=== PATIENT | female | born 1980 | race Caucasian/White ===

== ENCOUNTER 2017-06-10 06:11 | Day surgery (SDC) | payer BC, SELFPAY ==
[2017-06-10] VITALS (7 sets, daily range): BP systolic 110–135; BP diastolic 72–92; PULSE 89–114; RESP 16; TEMP 36.5–36.7; O2SAT 96–100; BMI 32.9
--- NOTE | 2017-06-10 07:30 | POC_PTH ---
PATIENT: NATALIE RODRIGUEZ LOC: [facility] [place] U#:[id number] AGE/SX: 37/F ROOM: RE06/10/[address]: Dr. Brooke Pacheco MD : 1980 BED: DIS: 06/10/2017 SPEC #: [id number] RECD: 06/10/17 08:35 STATUS: LELA COFFEYSalvador #: [id number] ANA: 06/10/17 07:[address]: Brooke Pacheco DEPT: SURGICAL PATHOLOGY RECD BY: Tessie Weiner ENTERED: 06/10/17 09:03 SP TYPE: PROD CONC OTHR DR: Dr. Benji Sen MD Tissues: Product of conception, NOS Procedures: Surgery Specimen Level IV HEADER OPERATION: Dilation and curettage, suction PRE-OP DIAGNOSIS: Missed at 10 weeks TISSUE SUBMITTED: Products of conception MICROSCOPIC DIAGNOSIS Products of conception: Decidua and immature chorionic villi (products of conception). SJ:melba 06/11/17 MICROSCOPIC DESCRIPTION Slides are reviewed. GROSS DESCRIPTION Received in fixative is one container labeled with the patient's name and designated products of conception. The specimen consists of multiple fragments of pink-red soft tissue that in aggregate measure 8 x 8 x 3 cm. No tissue is identified. Mission Systems Engineer tissue is submitted in two cassettes. / TRINY:melba 06/10/17 TC:5 CPT: 83853
[2017-06-10] MEDS: Doxycycline 100 MG CAPSULE PO (07:47)
--- NOTE | 2017-06-10 08:18 | PCM.DC.D&C ---
Discharge Diet: No Restrictions Discharge Activity: Return to Normal Activity, May Shower, May Take a Tub Bath - in 2 weeks. Return to work on:: 06/15/17 May shower in (days): 1 May resume sexual activity in: No Restrictions Call your doctor if your incision/area has: Sudden Increased Bleeding, Increased Pain/ Swelling Call your doctor if you observe: Fever of 101 or Higher Allergies/Adverse Reactions: Allergies No Known Allergies Allergy (Verified 06/09/17 11:27) Medications to take at Discharge Doxycycline 100 mg PO DAILY 1 Days #2 cap 06/10/17 Ibuprofen [Motrin] 600 mg PO Q6H PRN #30 tab 06/10/17 The following prescriptions were given: Doxycycline 100 mg PO DAILY 1 Days #2 cap Ibuprofen [Motrin] 600 mg PO Q6H PRN #30 tab PRN Reason: Pain Primary Care Physician: Benji Sen MD [Primary Care Provider] - Please Follow Up With: Brooke Pacheco MD - [phone] When: 2-4 weeks or as needed
--- NOTE | 2017-06-10 08:19 | OP.PCM_ITS ---
Report of Operation Date of Procedure: 06/10/17 Pre-Operative Diagnosis: 10 week missed spontaneous Post-Operative Diagnosis: Same Surgery/Procedure Performed:: Suction dilation and curettage Description of Surgical Findings:: Normal-appearing cervix and vagina enterprise application architect: Brian Burciaga MS3 Type of Anesthesia:: MAC/Supplemental/Local Anesthesiologist: Jovanni Jordan Special Medications: None Specimen's removed: Products of conception Drains: None Estimated Blood Loss (mL): 30 cc Fluids Replaced: LR Description of Procedure: The patient was taken to the operating room where she was prepped and draped in a dorsolithotomy position. A bimanual examination was done and confirmed the uterus to be 9 weeks size and anteverted. A weighted speculum was placed in the vagina and the anterior lip of the cervix was grasped with a single-tooth tenaculum. The cervix was dilated serially. A 10 mm suction curette was placed to the uterine fundus and the suction was created. Several passes were made to remove clots and products of conception. When minimal tissue was returning a gentle sharp curettage was then done of the uterine cavity. The uterine cry was appreciated and another gentle pass was made with the suction curette. At this point there is no active bleeding from the uterus and minimal blood and no further products of conception were removed. The instruments removed from the cervix and the cervix was observed and no active bleeding was identified. The tenaculum was removed off the cervix and hemostasis of the tenaculum site was assured. Made of the instruments removed from the vagina and the vaginal sweep was completed by me. Sponge and needle counts were correct. The patient was taken to the recovery room in stable condition. Findings: 9 week size uterus, normal cervix and vagina. Specimen: Products of conception Grafts/Implants Used: None - Complications None - Admit VTE Documentation VTE Present on Admission: No VTE Mechan Device Prophylaxis: None VTE Pharm Prophylaxis ordered?: No Reason prophylaxis not ordered:: Procedure Not Indicated
== END 2017-06-10 09:25 | disposition home or self-care (01) ==
LOC: SDC 06:12 → AC 06:15
PROVIDERS: Family Provider Family Medicine; PCP Family Medicine; Visit Provider Obstetrics & Gynecology
PROC: (CPT 59812; principal; 2017-06-10 07:15)
DX: O03.4 Incomplete spontaneous abortion without complication (principal)
CPT/HCPCS: 59812; 88305; J7120

== ENCOUNTER 2018-09-07 08:30 | Outpatient (RCR) | payer BC, SELFPAY | END 2018-09-10 23:59 | LOC: DC 08:30 | PROVIDERS: Family Provider Family Medicine; PCP Family Medicine; Visit Provider Nurse Practitioner Family | DX: O24.410 Gestational diabetes mellitus in pregnancy, diet controlled (principal) | CPT/HCPCS: 97802; G0108 ==

== ENCOUNTER 2018-09-20 08:30 | Outpatient (RCR) | payer BC, SELFPAY ==
[2017-06-10 06:31] VITALS: BMI 32.9
== END 2018-09-20 23:59 | disposition home or self-care (01) ==
LOC: DC 08:30
PROVIDERS: Family Provider Family Medicine; PCP Family Medicine; Visit Provider Nurse Practitioner Family
DX: O24.410 Gestational diabetes mellitus in pregnancy, diet controlled (principal)

== ENCOUNTER 2018-10-11 07:15 | Inpatient (IN) | payer BC, SELFPAY ==
[2017-06-10 06:31] VITALS: BMI 32.9
[2018-10-11] MEDS: 0.9% Saline Lock 10 ML Syringe IV ×2 (07:30→20:09)
[2018-10-11 07:34] VITALS: BMI 33.9
[2018-10-11] MEDS: Oxytocin 30 units/NS 500 ml 30 UNITS/500 ML IV.SOLN IV (07:43)
[2018-10-11 07:46] LABS: Bedside Glucose 79 mg/dL (70-110)
[2018-10-11 07:57] LABS: Absolute Lymphocyte Count 3.11 X10^3/ul (0.83-4.51); Absolute Neutrophil Count 7.5 X10^3/uL (2.0-7.7); Basophil# 0.02 X10^3/uL; Basophil% 0.2 % (0-1); Eosinophil# 0.08 X10^3/uL; Eosinophils% 0.7 % (0-5); Hematocrit 41.4 % (37-47); Hemoglobin 13.9 g/dl (12.0-15.0); Lymphocyte # 3.11 X10^3/ul (4.0); Lymphocyte % 27.1 % (19-41); Mean Corp Hgb Conc 33.6 g/gl (32-36); Mean Corpuscular Hgb 27.9 pg (27.0-32.0); Mean Corpuscular Volume 83.1 fL (81-99); Mean Platelet Vol. 10.6 fl (6.2-12.0); Monocyte# 0.76 X10^3/uL; Monocyte% 6.6 % (0-10); Neutrophil # 7.46 X10^3/uL (2.7-7.7); Neutrophil % 65.1 % (47-70); Platelet Count 219 K/mm3 (150-450); RBC Distribution Width CV 14.7 % (11.6-14.6); RBC Distribution Width SD 44.3 fl (35.1-43.9); Red Blood Count 4.98 M/mm3 (4.2-5.4); White Blood Count 11.5 K/mm3 (4.4-11.0)
[2018-10-11] MEDS: 0.9% Normal Saline 100 ML IV.SOLN. INTRA-UTER (08:07)
[2018-10-11 08:11] LABS: POSITIVE COUNT NO; POSITIVE DIFFERENTIAL NO; POSITIVE MORPHOLOGY NO
[2018-10-11] MEDS: Lactated Ringers 1,000 ML 50 ML IV ×3 (08:35→16:14)
[2018-10-11 11:41] LABS: Bedside Glucose 76 mg/dL (70-110)
[2018-10-11] MEDS: fentaNYL-bupivacaine (epidural) 100 ML BAG EPIDURAL (12:45)
--- NOTE | 2018-10-11 13:18 | HP.PCM_ITS ---
History Date of Admission: 10/11/18 Final CHAPINCITO: 10/18/18 Final CHAPINCITO Source: US <20 weeks Gestational age: 39 Weeks and 0 Days History of this : This is a 38 year-old 3 para 1-0-1-2 at 39 weeks gestation whose has been complicated by advanced maternal age and gestational diabetes class A1 presents for induction of labor. She denies any gross vaginal bleeding or leaking of fluid. She had good movement. Her blood sugars have been well controlled. History one full-term vaginal delivery of twins which was complicated by atony and a blood transfusion for acute blood loss anemia. Past medical history is significant for GERD and irritable bowel. Has a history of blood transfusion for blood loss anemia after vaginal delivery. Past surgical history significant for oral surgery and a D&C for miscarriage. Allergies No Known Allergies Allergy (Verified 10/11/18 07:35) Home Medications: Home Medications Vits [Prenatabs FA ] 1 tab PO DAILY 10/11/18 Ranitidine [Zantac] 1 tab PO DAILY 10/11/18 Sudafed 10/11/18 Smoking Status: Never smoker Alcohol: None Number of Fetus(es): 1 Heart Tracing: Baseline, moderate variability some accelerations no decelerations. Category 1 upon admission. TOCO Analysis: Rare contractions History Past Pregnancies: Past Pregnancies Delivery Date Name GA/Weeks Outcome Route Weight Gender Labor Length Anesthesia Delivery Location Provider FOB Review of Systems Constitutional: Denies: Chills, Fever Eyes: Denies: Blurred vision HEENT: Reports: Nasal Congestion. Denies: Head Aches Cardiovascular: Denies: Chest Pain Respiratory: Denies: Cough, Shortness of Breath Gastrointestinal: Denies: Abdominal Pain Skin: Denies: Rash Physical Exam General: Alert, Cooperative, No apparent distress Cardiovascular: Regular rate Lungs: Normal air movement Abdomen: Soft, Non-Distended, Gravid, Appropriate for Gestational Age Extremities:: Other - Trace edema ROOM SERVICE CLERK: Normal external genitalia Estimated gestational size: Appropriate for gestational size Presentation: Cephalic Cervix Dilation (cm): 2 - Mid position, medium consistency Station: -3 Effacement (%): 60 Assessment/Plan This is a 38 year-old, 3 para 1-0-1-2 at 39 weeks gestation for induction of labor due to gestational diabetes diet-controlled and advanced maternal age. Risk benefits and alternatives to induction were discussed with the patient, questions were answered to her satisfaction she desires to proceed. We will proceed with Pitocin and Garcia and likely artificial rupture membranes induction. Estimated weight is less than 4500 g by ultrasound and pelvis clinically adequate to expect vaginal delivery. May have epidural, nitrous oxide or Nubain as needed for pain control. Procedure note: 20 8:05 AM, Garcia catheter was placed over stylette through the internal cervical loss in the usual sterile fashion and balloon was inflated to 30 cc with normal saline. Placement the internal cervical loss was confirmed. Patient and fetus tolerated the procedure well.
[2018-10-11] MEDS: Ondansetron 4 MG/2 ML Vial IV (14:34)
[2018-10-11 15:36] LABS: Bedside Glucose 68 mg/dL (70-110)
[2018-10-11] MEDS: Oxytocin 30 units/NS 500 ml 30 UNITS/500 ML IV.SOLN 334 UNITS IV (17:57)
--- NOTE | 2018-10-11 18:08 | PCM.OPRPT ---
Vaginal Delivery Maternal Presentation: Medically Indicated Induction - advanced maternal age, gestational diabetes Method of Induction: Pitocin, Garcia Bulb, Amniotomy Medical Reason for Induction: - - gestational diabetes, advanced maternal age Amniotic Membrane Rupture Type: Artificial Amniotic Fluid Description: Clear Final CHAPINCITO: 10/18/18 Final CHAPINCITO Source: US <20 weeks Gestational age: 39 Weeks and 0 Days Date of Procedure: 10/11/18 Pre-Operative Diagnosis: labor Post-Operative Diagnosis: same Surgery/ Procedure Performed: Spontaneous Vaginal Delivery Type of Anesthesia: Epidural Description of Procedure: Patient was complete and pushing found to be ROT position. After several pushes, the head did not restituted and I manually rotated to NAVEED. The patient then delivered on the next push. A vigorous male was delivered NAVEED over intact perineum. The remainder the was delivered with maternal pushing and gentle traction only in less than 15 seconds. The Pitocin infusion was initiated for active management of the third stage. The cord was clamped and cut after 1 minute. The was attended to by the waiting nursing staff. The placenta was delivered spontaneously and intact. The cervix and vagina were intact. Sponge and needle counts were correct. A vaginal sweep was completed by me. Presentation: NAVEED Placental Delivery Description: Spontaneous Placenta Disposition: [facility] Cord Vessel Description: 3 Vessels Cord Entanglement: None Drain: Garcia to straight drain Estimated Blood Loss: 200 A gender: Female (1 minute): 9 (5 minute): 9 Episiotomy Description: None Laceration: None Medications given after delivery: IV Pitocin Complications: None
[2018-10-11] MEDS: Oxytocin 30 units/NS 500 ml 30 UNITS/500 ML IV.SOLN 167 UNITS IV (18:27)
[2018-10-11 19:21] LABS: Bedside Glucose 88 mg/dL (70-110)
[2018-10-11 20:39] VITALS: BP 134/77; PULSE 97; RESP 16; TEMP 36.6; O2SAT 94
[2018-10-12 00:05] VITALS: BP 114/68; PULSE 88; RESP 16; TEMP 36.8
[2018-10-12 04:03] VITALS: BP 100/67; PULSE 86; RESP 16; TEMP 36.6
[2018-10-12 05:21] LABS: Bedside Glucose 78 mg/dL (70-110)
[2018-10-12 08:38] VITALS: BP 124/78; PULSE 94; RESP 16; TEMP 36.6
[2018-10-12 12:00] VITALS: BP 124/77; PULSE 77; RESP 16; TEMP 36.9
--- NOTE | 2018-10-12 13:05 | PCM.PN.OB ---
Subjective: pain well controlled. Average lochia. No complaints today. - Physical Exam General: Alert, Cooperative, No apparent distress Abdomen: Soft, Non-Distended Extremities: Edema - trace Vital Signs Temp Pulse Resp BP Pulse Ox 98 F 94 16 124/78 H 94 10/12/18 08:38 10/12/18 08:38 10/12/18 08:38 10/12/18 08:38 10/11/18 20:39 Oxygen Delivery Method Room Air Weight: 95.3 kg Body Mass Index (BMI) 33.9 Intake and Output for Last 24 Hours 10/10/18 10/11/18 10/12/18 23:59 23:59 23:59 Intake Total 3345 / 3345 Output Total 1350 / 1350 Balance 1994 POC Glucose 10/12/18 10/11/18 10/11/18 05:14 18:55 15:27 POC Glucose 78 88 68 L Medical Necessity - Tobacco Use Smoking Status: Never smoker Assessment/Plan day #1 status post vaginal delivery. Infant is breast-feeding and doing well. Discharged home with routine follow-up instructions.
--- NOTE | 2018-10-12 14:02 | DCINST_ITS ---
Discharge Diet: No Restrictions Discharge Activity: Return to Normal Activity, May not drive while taking narcotic pain medications., May Shower May resume sexual activity in: 4-6 weeks Additional Activity Instructions:: Nothing in the vagina for 4-6 weeks. You may return to work/school in 6 weeks. Call your doctor if your incision/area has: Continuous Slow Oozing, Sudden Increased Bleeding, Increased Pain/ Swelling, Increased Redness, Foul Smelling Discharge Additional Instructions: If you experience any of the following, contact your healthcare provider. * Bleeding that soaks a pad every hour for 2 hours * Fever 100.4 or higher * Unrelieved incision or abdominal pain * Swelling, redness, discharge or bleeding from your incision or episiotomy site * Your incision begins to separate * Problems urinating (including inability to urinate or burning while urinating). * Visual changes * Severe headache * Flu-like symptoms * Pain or redness in one of both of your breasts * Pain, warmth, tenderness or swelling in your legs, especially the calf area * Frequent nausea and vomiting * Symptoms of depression or anxiety If you experience any of the following, call 911 or go to the nearest Emergency Room. * Chest pain * Problems breathing * Seizure activity * Partial or complete paralysis of a body part, slurred speech, weakness or drooping of the face, or a sudden inability to walk or hold your balance Allergies/Adverse Reactions: Allergies No Known Allergies Allergy (Verified 10/11/18 07:35) Medications to take at Discharge Vits [Prenatabs FA ] 1 tab PO DAILY 10/11/18 Ranitidine [Zantac] 1 tab PO DAILY 10/11/18 Sudafed 10/11/18 Please Follow Up With: Brooke Pacheco MD - [phone] When: schedule visits in 1-2 and 6 weeks or as needed. Primary Care Physician: Benji Sen MD [Primary Care Provider] - Test Results: Test results from this visit will be discussed in further detail at your follow- up appointment, if applicable.
--- NOTE | 2018-10-12 14:02 | PCM.DCVAG ---
Discharge Diet: No Restrictions Discharge Activity: Return to Normal Activity, May not drive while taking narcotic pain medications., May Shower May resume sexual activity in: 4-6 weeks Additional Activity Instructions:: Nothing in the vagina for 4-6 weeks. You may return to work/school in 6 weeks. Call your doctor if your incision/area has: Continuous Slow Oozing, Sudden Increased Bleeding, Increased Pain/ Swelling, Increased Redness, Foul Smelling Discharge Additional Instructions: If you experience any of the following, contact your healthcare provider. Bleeding that soaks a pad every hour for 2 hours Fever 100.4 or higher Unrelieved incision or abdominal pain Swelling, redness, discharge or bleeding from your incision or episiotomy site Your incision begins to separate Problems urinating (including inability to urinate or burning while urinating). Visual changes Severe headache Flu-like symptoms Pain or redness in one of both of your breasts Pain, warmth, tenderness or swelling in your legs, especially the calf area Frequent nausea and vomiting Symptoms of depression or anxiety If you experience any of the following, call 911 or go to the nearest Emergency Room. Chest pain Problems breathing Seizure activity Partial or complete paralysis of a body part, slurred speech, weakness or drooping of the face, or a sudden inability to walk or hold your balance Allergies/Adverse Reactions: Allergies No Known Allergies Allergy (Verified 10/11/18 07:35) Medications to take at Discharge Vits [Prenatabs FA ] 1 tab PO DAILY 10/11/18 Ranitidine [Zantac] 1 tab PO DAILY 10/11/18 Sudafed 10/11/18 Please Follow Up With: Brooke Pacheco MD - [phone] When: schedule visits in 1-2 and 6 weeks or as needed. Primary Care Physician: Benji Sen MD [Primary Care Provider] - Test Results: Test results from this visit will be discussed in further detail at your follow-up appointment, if applicable.
[2018-10-12] MEDS: Senna/Docusate Sodium 1 Tablet PO (16:42)
[2018-10-12 16:47] VITALS: BP 124/84; PULSE 84; RESP 16; TEMP 36.6
--- NOTE | 2018-10-21 18:34 | NURSING ---
Follow up phone call mother doing well baby has gained 3 oz and nursing well exclusively. Mother had good experience and really liked david Koch and Sudha .
== END 2018-10-12 18:56 | disposition home or self-care (01) | DRG 807 ==
PROVIDERS: Admitting Provider Obstetrics & Gynecology; Family Provider Family Medicine; PCP Family Medicine; Referring Provider Obstetrics & Gynecology; Visit Provider Obstetrics & Gynecology
DX: O24.420 Gestational diabetes mellitus in childbirth, diet controlled (principal); Z37.0 Single live birth; O32.2XX0 Maternal care for transverse and oblique lie, not applicable or unspecified; O09.523 Supervision of elderly multigravida, third trimester; O99.62 Diseases of the digestive system complicating childbirth; K21.9 Gastro-esophageal reflux disease without esophagitis; K58.9 Irritable bowel syndrome, unspecified; Z3A.39 39 weeks gestation of pregnancy
CPT/HCPCS: 59025; 59050; 82962; 85025; 86850; 86900; 99218; J7120; A4216; G0378; J2405